=== PATIENT | male | born 1990 | race Caucasian/White ===

== ENCOUNTER 2017-08-02 02:51 | Inpatient (IN) | payer MEDICAID ==
[~2017-08-02] VITALS: Ht 177.8 cm; Wt 77.1 kg
[2017-08-02] MEDS ORDERED: MORPHINE SULFATE 4 MG/ML SYR/VIAL IV ONE ×2 (04:45)
[2017-08-02] MEDS ORDERED: ONDANSETRON HCL 4 MG/2 ML VIAL IV ONE ×2 (04:45)
[2017-08-02 05:16] LABS: Urine WBC None Seen /hpf (0 - 3)
[2017-08-02 05:19] LABS: Basophils # (auto) 0.1 uL; Eosinophils # (auto) 0.1 uL; Eosinophils % (auto) 0.7 % (0.0-7.0); Hematocrit 40.2 % (41.0-53.0); Hemoglobin 14.1 g/dL (13.5-17.5); Lymphocytes # (auto) 2.8 uL; Lymphocytes % (auto) 22.7 % (10.0-50.0); Mean Corpuscular Hemoglobin 32.1 pg (28.0-32.0); Mean Corpuscular Hgb Conc. 35.1 g/dL (32.0-36.0); Mean Corpuscular Volume 91.5 fL (80.0-100.0); Monocytes # (auto) 1.3 uL; Monocytes % (auto) 10.5 % (0.0-12.0); Neutrophils % (auto) 65.1 % (37.0-80.0); Nucleated Red Blood Cells % 0.2 %; Platelet Count (auto) 232 10^3/uL (140-450); Red Blood Cells 4.39 10^6/uL (4.5-5.90); Red Cell Distribution Width 12.8 % (11.8-14.3); White Blood Cell 12.2 10^3/uL (4.4-10.8)
[2017-08-02 05:35] LABS: Urine Amorphous Crystal FEW /hpf (None Seen); Urine Bacteria NONE SEEN /hpf (None Seen); Urine Blood Negative /uL (Negative); Urine Mucus FEW (None Seen); Urine Specific Gravity 1.031 (1.001-1.035)
[2017-08-02 05:39] LABS: Albumin 3.9 g/dL (3.4-5.0); Calcium 9.3 mg/dL (8.5-10.1); Potassium 3.9 mmol/L (3.5-5.1)
[2017-08-02 05:44] LABS: Bilirubin, Total 0.6 mg/dL (0.2-1.0); Total Protein 7.7 g/dL (6.4-8.2)
[2017-08-02] MEDS ORDERED: HYDROcodone-ACET 5/325MG TAB PO PRN (08:30)
[2017-08-02] MEDS ORDERED: ACETAMINOPHEN 500 MG TAB PO PRN (08:30)
[2017-08-02] MEDS ORDERED: ONDANSETRON HCL 4 MG/2 ML VIAL IV PRN (08:30)
[2017-08-02] MEDS: MORPHINE SULFATE 4 MG/ML SYR/VIAL IV PRN ×2 (09:38→13:05)
[2017-08-02 10:54] VITALS: BP 109/59
[2017-08-02 13:00] VITALS: BP 108/63
== END 2017-08-02 14:30 | disposition home or self-care (01) | DRG 813 ==
LOC: ER 02:51 → CENTRAL 02:52
PROVIDERS: ADMIT Nurse Practitioner Family; ATTEND Nurse Practitioner Family
DX: N99.840 Postprocedural hematoma of a genitourinary system organ or structure following a genitourinary system procedure (principal); N50.1 Vascular disorders of male genital organs; Z98.52 Vasectomy status; Z90.49 Acquired absence of other specified parts of digestive tract
CPT/HCPCS: 36415; 76870; 80053; 81001; 85025; 96374; 96375; J2405

== ENCOUNTER 2019-07-13 19:58 | Emergency (ER) | payer MEDICAID ==
[~2019-07-13] VITALS: Ht 177.8 cm; Wt 86.2 kg
[2019-07-13] MEDS ORDERED: TETANUS-DIPTH-ACEL PERTUSSIS 0.5ML SYRG IM ONE (23:15)
[2019-07-14 00:22] VITALS: BP 134/80
== END 2019-07-14 00:50 | disposition home or self-care (01) ==
LOC: ER 19:58
DX: S62.620A Displaced fracture of middle phalanx of right index finger, initial encounter for closed fracture (principal); S60.410A Abrasion of right index finger, initial encounter; W20.8XXA Other cause of strike by thrown, projected or falling object, initial encounter; Y93.89 Activity, other specified; Y92.89 Other specified places as the place of occurrence of the external cause; Y99.8 Other external cause status
CPT/HCPCS: 29130; 73130; 90471; 90715

== ENCOUNTER 2019-07-15 14:32 | Emergency (ER) | payer MEDICAID ==
[~2019-07-15] VITALS: Ht 175.3 cm; Wt 86.2 kg
[2019-07-15 15:35] LABS: Basophils # (auto) 0.1 uL; Basophils % (auto) 0.9 % (0.0-2.0); Eosinophils # (auto) 0 uL; Eosinophils % (auto) 0.4 % (0.0-7.0); Hematocrit 48.1 % (41.0-53.0); Hemoglobin 16.9 g/dL (13.5-17.5); Lymphocytes # (auto) 2.1 uL; Lymphocytes % (auto) 22.3 % (10.0-50.0); Mean Corpuscular Hemoglobin 31.8 pg (28.0-32.0); Mean Corpuscular Volume 90.8 fL (80.0-100.0); Monocytes # (auto) 0.7 uL; Monocytes % (auto) 7.4 % (0.0-12.0); Neutrophils # (auto) 6.5 uL; Nucleated Red Blood Cells % 0.1 %; Platelet Count (auto) 207 10^3/uL (140-450); Red Cell Distribution Width 12.6 % (11.8-14.3); White Blood Cell 9.4 10^3/uL (4.4-10.8)
[2019-07-15 15:50] LABS: Alanine Aminotransferase 45 U/L (16-61); Albumin 4.4 g/dL (3.4-5.0); Anion Gap 5 (5-15); Aspartate Aminotransferase 22 U/L (15-37); BUN/Creatinine Ratio 13.8; Blood Urea Nitrogen 13 mg/dL (7-18); Calcium 9.1 mg/dL (8.5-10.1); Carbon Dioxide 27 mmol/L (21-32); Chloride 105 mmol/L (98-107); GFR African American 121 mL/min; GFR Non-African American 100 mL/min; Glucose 91 mg/dL (74-106); Potassium 3.8 mmol/L (3.5-5.1); Sodium 137 mmol/L (136-145)
[2019-07-15 15:54] LABS: Alkaline Phosphatase 101 U/L (45-117); Bilirubin, Total 1.2 mg/dL (0.2-1.0); Total Protein 8.2 g/dL (6.4-8.2)
[2019-07-15 19:25] VITALS: BP 120/82
== END 2019-07-15 19:30 | disposition home or self-care (01) ==
LOC: ER 14:37
DX: J20.9 Acute bronchitis, unspecified (principal); F41.9 Anxiety disorder, unspecified; Z90.49 Acquired absence of other specified parts of digestive tract
CPT/HCPCS: 36415; 71046; 80053; 84484; 85025; 93005

== ENCOUNTER 2024-04-23 23:41 | Inpatient (IN) | payer MEDICAID ==
[~2024-04-23] VITALS: Ht 175.3 cm; Wt 78.6 kg
[2024-04-24] MEDS: SODIUM CHLORIDE 0.9% 1,000 ML IV ONE (00:06)
[2024-04-24] MEDS: ONDANSETRON HCL 4 MG/2 ML VIAL IV ONE (00:06)
[2024-04-24] MEDS: PANTOPRAZOLE 40 MG/10 ML VIAL INJ IV ONE ×2 (00:06→03:00)
[2024-04-24] MEDS: LORazepam 2MG/ML-1ML VIAL IV ONE ×2 (00:06→00:40)
[2024-04-24 00:26] LABS: Basophils # (auto) 0.1 10 ^3/uL (0-0.2); Basophils % (auto) 0.9 % (0.0-2.0); Eosinophils # (auto) 0.1 10 ^3/uL (0-0.8); Eosinophils % (auto) 0.6 % (0.0-7.0); Hematocrit 47.6 % (41.0-53.0); Lymphocytes % (auto) 41.8 % (10.0-50.0); Mean Corpuscular Hemoglobin 33.4 pg (28.0-32.0); Mean Corpuscular Hgb Conc. 35.7 g/dL (32.0-36.0); Mean Corpuscular Volume 93.6 fL (80.0-100.0); Monocytes # (auto) 0.5 10 ^3/uL (0-1.3); Monocytes % (auto) 4.8 % (0.0-12.0); Neutrophils % (auto) 51.9 % (37.0-80.0); Nucleated Red Blood Cells % 0.1 %; Platelet Count (auto) 322 10^3/uL (140-450); Red Blood Cells 5.09 10^6/uL (4.5-5.90); Red Cell Distribution Width 12.9 % (11.8-14.3); White Blood Cell 9.6 10^3/uL (4.4-10.8)
--- NOTE | 2024-04-24 00:27 | ED.PDOC ---
History of Present Illness HPI Comments 33-year-old male who came to ER for alcohol intoxication/withdrawals. Patient has been binge drinking alcohol/vodka for over a week. Last drank alcohol at 6:00 p.m. last night. As he went to bed, he started having generalized tremors, shaking, nausea, and blurring of vision. Has been having visual hallucinations as well. Upon arrival blood pressure of 221/178 mm Hg. Chief Complaint: Withdrawal Time Seen by MD: 00:27 Primary Care Provider: KIMBERLY Allergies: Coded Allergies: NO KNOWN ALLERGIES (Unverified , 08/02/17) Home Meds No Active Prescriptions or Reported Meds Information Source: Patient Mode of Arrival: Ambulatory Severity: Moderate Timing: Hours Duration: Since onset Prehospital treatment: None Medication Refill: For: Other Past Medical History PAST MEDICAL HISTORY: Anxiety, Denies Surgical History: Appendectomy Family History Family History: Reviewed,noncontributory to illness Social History Smoker: Non-Smoker, Other Alcohol: Heavy Drugs: Marijuana Lives In: Home Constitutional: denies: chills, diaphoresis, fatigue, fever, malaise, sweats, weakness, others EENTM: reports: blurred vision, voice changes; denies: double vision, ear bleeding, ear discharge, ear drainage, ear pain, ear ringing, eye pain, eye redness, hearing loss, mouth pain, mouth swelling, nasal discharge, nose bleeding, nose congestion, nose pain, photophobia, tearing, throat pain, throat swelling, others Respiratory: denies: cough, hemoptysis, orthopnea, SOB at rest, shortness of breath, SOB with excertion, stridor, wheezing, others Cardiovascular: denies: chest pain, dizzy spells, diaphoresis, Dyspnea on exertion, edema, irregular heart beat, left arm pain, lightheadedness, palpitations, PND, syncope, others Gastrointestinal: denies: abdomen distended, abdominal pain, blood streaked bowels, constipated, diarrhea, dysphagia, difficulty swallowing, hematemesis, melena, nausea, poor appetite, poor fluid intake, rectal bleeding, rectal pain, vomiting, others Genitourinary: denies: burning, dysuria, flank pain, frequency, hematuria, incontinence, penile discharge, penile sore, pain, testicle pain, testicle swelling, urgency, others Neurological: reports: tremors; denies: dizziness, fainting, headache, left sided numbness, left sided weakness, numbness, paresthesia, pre-existing deficit, right sided numbness, right sided weakness, seizure, speech problems, tingling, weakness, others Musculoskeletal: denies: back pain, gout, joint pain, joint swelling, muscle pain, muscle stiffness, neck pain, others Integumetry: denies: bruises, change in color, change in hair/nails, dryness, laceration, lesions, lumps, rash, wounds, others Allergic/Immunocompromised: denies: Difficulty Healing, Frequent Infections, Hives, Itching, others Hematologic/Lymphatic: denies: anemia, blood clots, easy bleeding, easy bruising, swollen glands, others Endocrine: denies: excessive hunger, excessive sweating, excessive thirst, excessive urination, flushing, intolerance to cold, intolerance to heat, unexplained weight gain, unexplained weight loss, others Psychiatric: denies: anxiety, bipolar disorder, depression, hopeless, panic disorder, schizophrenia, sleepless, suicidal, others Physical Exam General Appearance: No Apparent Distress, Normal HEENT: Normal ENT Inspection, Pharynx Normal, TMs Normal Neck: Full Range of Motion, Non-Tender, Normal, Normal Inspection Respiratory: Chest Non-Tender, Lungs Clear, No Accessory Muscle Use, No Respiratory Distress, Normal Breath Sounds Cardiovascular: No Edema, No JVD, No Murmur, No Gallop, Normal Peripheral Pulses, Regular Rate/Rhythm Breast Exam: Deferred Gastrointestinal: No Organomegaly, Non Tender, No Pulsatile Mass, Normal Bowel Sounds, Soft Genitalia: Deferred Pelvic: Deferred Rectal: Deferred Extremities: No calf tenderness, Normal capillary refill, Normal inspection, Normal range of motion, Non-tender, No pedal edema Musculoskeletal : Apperance: Normal Neurologic: Alert, paper supervisor II-XII nml as Tested, No Motor Deficits, Normal Affect, Normal Mood, No Sensory Deficits Cerebellar Function: Normal Reflexes: Normal Skin: Dry, Normal Color, Warm Lymphatic: No Adenopathy Was a procedure done? Was a procedure done?: No Differential Dx Considerations may include: Anemia, electrolyte imbalance, alcohol intoxication, alcohol withdrawal, hypertensive urgency X-Ray, Labs, Meds, VS Vital Signs Date Time Temp Pulse Resp B/P (MAP) Pulse Ox O2 Delivery O2 Flow Rate FiO2 04/24/24 01:30 95 18 114/73 (87) 99 04/24/24 00:47 105 18 127/75 (92) 96 04/23/24 23:46 97.8 113 22 221/178 (192) 99 Lab Test 04/24/24 01:56 04/23/24 23:57 04/23/24 23:54 04/23/24 00:55 Range/Units Lactic Acid Level Pending 2.4 *H 0.4-2.0 mmol/L White Blood Count 9.6 4.4-10.8 10^3/uL Red Blood Count 5.09 4.5-5.90 10^6/uL Hemoglobin 17.0 13.5-17.5 g/dL Hematocrit 47.6 41.0-53.0 % Mean Corpuscular Volume 93.6 80.0-100.0 fL Mean Corpuscular Hemoglobin 33.4 H 28.0-32.0 pg Mean Corpuscular Hemoglobin Concent 35.7 32.0-36.0 g/dL Red Cell Distribution Width 12.9 11.8-14.3 % Platelet Count 322 140-450 10^3/uL Mean Platelet Volume 7.9 6.9-10.8 fL Neutrophils (%) (Auto) 51.9 37.0-80.0 % Lymphocytes (%) (Auto) 41.8 10.0-50.0 % Monocytes (%) (Auto) 4.8 0.0-12.0 % Eosinophils (%) (Auto) 0.6 0.0-7.0 % Basophils (%) (Auto) 0.9 0.0-2.0 % Neutrophils # (Auto) 5.0 1.6-8.6 10 ^3/uL Lymphocytes # (Auto) 4.0 0.4-5.4 10 ^3/uL Monocytes # (Auto) 0.5 0-1.3 10 ^3/uL Eosinophils # (Auto) 0.1 0-0.8 10 ^3/uL Basophils # (Auto) 0.1 0-0.2 10 ^3/uL Nucleated Red Blood Cells 0.1 % Sodium Level 137 136-145 mmol/L Potassium Level 3.6 3.5-5.1 mmol/L Chloride Level 104 98-107 mmol/L Carbon Dioxide Level 21 20-31 mmol/L Anion Gap 12 5-15 Blood Urea Nitrogen 11 9-23 mg/dL Creatinine 1.09 0.700-1.30 mg/dL Glomerular Filtration Rate Calc 91 >90 mL/min BUN/Creatinine Ratio 10.1 10.0-20.0 Serum Glucose 116 H 74-106 mg/dL Calcium Level 10.4 8.7-10.4 mg/dL Total Bilirubin 0.6 0.2-1.0 mg/dL Aspartate Amino Transferase (AST) 30 13-40 U/L Alanine Aminotransferase (ALT) 33 7-40 U/L Alkaline Phosphatase 119 H 46-116 U/L B-Type Natriuretic Peptide < 0 0-100 pg/mL Total Protein 7.9 5.7-8.2 g/dL Albumin 5.1 H 3.2-4.8 g/dL Plasma/Serum Blood Alcohol 4.4 <10 mg/dL POC Glucose 111 H 70-106 mg/dl Urine Color Light-yellow Yellow Urine Clarity Clear Clear Urine pH 6.5 5.0-9.0 Urine Specific [place] 1.010 1.001-1.035 Urine Protein Negative Negative Urine Ketones Negative Negative Urine Blood Negative Negative /uL Urine Nitrite Negative Negative Urine Bilirubin Negative Negative Urine Urobilinogen Normal Negative mg/dL Urine Leukocyte Esterase Negative Negative /uL Urine RBC None seen 0 - 3 /hpf Urine WBC 1 0 - 3 /hpf Urine Squamous Epithelial Cells None seen <5 /hpf Urine Bacteria None seen None Seen /hpf Urine Glucose Normal Normal mg/dL Urine Opiates Screen Neg NEGATIVE Urine Fentanyl Screen Neg NEGATIVE Urine Barbiturates Screen Neg NEGATIVE Urine Phencyclidine Screen Neg NEGATIVE Urine Amphetamines Screen Neg NEGATIVE Urine Benzodiazepines Screen Neg NEGATIVE Urine Cocaine Screen Neg NEGATIVE Urine Cannabinoids Screen Neg NEGATIVE Current Medications Medications (Trade) Dose Ordered Sig/Manuel Route Start Time Stop Time Status Last Admin Sodium Chloride 1,000 ml @ 1,000 mls/hr Q1H ONCE IV 04/24/24 00:00 04/24/24 00:59 DC 04/24/24 00:06 Ondansetron HCl (Zofran) 4 mg ONCE ONCE IV 04/24/24 00:00 04/24/24 00:01 DC 04/24/24 00:06 Pantoprazole Sodium (Protonix) 40 mg ONCE ONCE IV 04/24/24 00:00 04/24/24 00:01 DC 04/24/24 00:06 Lorazepam (Ativan Inj) 1 mg ONCE ONCE IV 04/24/24 00:00 04/24/24 00:01 DC 04/24/24 00:06 Lorazepam (Ativan Inj) 1 mg ONCE ONCE IV 04/24/24 00:45 04/24/24 00:46 DC 04/24/24 00:40 Time of 1ST Reevaluation: 00:23 Reevaluation 1ST: Unchanged Patient Education/Counseling: Diagnosis, Treatment Family Education/Counseling: Diagnosis, Treatment Departure 1 Departure Time of Disposition: 02:13 (Patient with a acute alcohol withdrawal. Treat with benzos we will admit patient for further workup) Impression: Primary Impression: Acute hyperactive alcohol withdrawal delirium Disposition: 09 ADMITTED INPATIENT Admit to: Med Surg Condition: Serious e-Prescriptions No Active Prescriptions or Reported Meds Critical Care Note Critical Care Time?: Yes (35 min-critical care time only) Critical care comment: Acute alcohol withdrawal Authorized and Performed by: Ronaldo Shepherd MD Total critical care time: Approximately 39 minutes Due to a high probability of clinically significant, life threatening deterioration, the patient required my highest level of preparedness to int ervene emergently and I personally spent this critical care time directly and personally managing the patient. This critical care time included obtaining a history; examining the patient; pulse oximetry; ordering and review of studies; arranging urgent treatment with development of a management plan; evaluation of patient's response to treatment; frequent reassessment; and, discussions with other providers. This critical care time was performed to assess and manage the high probability of imminent, life-threatening deterioration that could result in multi-organ failure. It was exclusive of separately billable procedures and treating other patients and teaching time. Please see my other sections and the rest of the note for further information on patient assessment and treatment. Stability Stability form required: No Heart Score Heart Score: Heart Score Response (Comments) Value History N/A 0 EKG N/A 0 Age N/A 0 Risk Factors N/A 0 Troponin N/A 0 Total 0 I personally scribed for RONALDO SHEPHERD MD ([email or web address]) on 04/24/24 at 00:27. E lectronically submitted by Maninder Chun ([facility] RONALDO SHEPHERD MD Apr 24, 2024 00:27
[2024-04-24 01:12] LABS: Urine Bacteria None Seen /hpf (None Seen)
[2024-04-24 01:22] LABS: Chloride 104 mmol/L (98-107); Potassium 3.6 mmol/L (3.5-5.1); Sodium 137 mmol/L (136-145)
[2024-04-24 01:24] LABS: Anion Gap 12 (5-15); Calcium 10.4 mg/dL (8.7-10.4); Carbon Dioxide 21 mmol/L (20-31)
[2024-04-24 01:28] LABS: Urine Blood Negative /uL (Negative); Urine Clarity Clear (Clear); Urine Color Light-Yellow (Yellow); Urine Protein, UAD Negative (Negative); Urine Urobilinogen Normal (Negative); Urine WBC 1 /hpf (0 - 3); Urine pH 6.5 (5.0-9.0)
[2024-04-24 01:29] LABS: Amphetamine Screen, Urine Neg (NEGATIVE)
[2024-04-24 01:29] LABS: BUN/Creatinine Ratio 10.1 (10.0-20.0); Blood Urea Nitrogen 11 mg/dL (9-23)
[2024-04-24 01:30] LABS: Blood Alcohol 4.4 mg/dL (<10)
[2024-04-24 01:30] LABS: Barbiturate Scree,Urine Neg (NEGATIVE); Benzodiazephine Screen, Urine Neg (NEGATIVE); Cannabinoid Screen, Urine Neg (NEGATIVE); Cocaine Screen, Urine Neg (NEGATIVE); Opiate Scree,Urine Neg (NEGATIVE); Phencyclidine Screen, Urine Neg (NEGATIVE)
[2024-04-24 01:31] LABS: Alkaline Phosphatase 119 U/L (46-116); Glucose 116 mg/dL (74-106)
[2024-04-24 01:32] LABS: Alanine Aminotransferase 33 U/L (7-40); Albumin 5.1 g/dL (3.2-4.8); Aspartate Aminotransferase 30 U/L (13-40); Bilirubin, Total 0.6 mg/dL (0.2-1.0); Total Protein 7.9 g/dL (5.7-8.2)
[2024-04-24 01:37] LABS: Lactic Acid w/Reflex 2.4 mmol/L (0.4-2.0)
[2024-04-24] MEDS ORDERED: MORPHINE SULFATE INJ 2 MG/ml SYRG IV PRN (02:30)
[2024-04-24] MEDS ORDERED: chlordiazePOXIDE HCL 5 MG CAP PO PRN (02:30)
[2024-04-24] MEDS ORDERED: DOCUSATE SOD 100 MG CAP PO PRN (02:30)
[2024-04-24] MEDS ORDERED: NITROGLYCERIN 0.4 MG SL TAB SL PRN (02:30)
[2024-04-24] MEDS ORDERED: ONDANSETRON HCL 4 MG/2 ML VIAL IV PRN (02:30)
[2024-04-24 02:41] VITALS: PULSE 87; RESP 14; O2SAT 96
[2024-04-24] MEDS: chlordiazePOXIDE HCL 25 MG CAP PO ONE (03:00)
[2024-04-24] MEDS: FOLIC ACID 1 MG TAB PO ONE (03:00)
[2024-04-24] MEDS: CYANOCOBALAMIN (B-12) 1000 MCG/1 ML VIAL IM ONE (03:00)
--- NOTE | 2024-04-24 03:10 | DVHHPRES ---
History of Present Illness Resident Creating Document: RODNEY FAGAN RESIDENT History of Present Illness Patient is 33 years old male with a history of anxiety came with a complaint of symptoms of alcohol withdrawal. As per patient he had alcohol 6:00 p.m. on 02/21/2024, following that he also had vodka yesterday. He went to sleep and wake up early and felt different. As per patient he felt like the floor of the room is wavy, reported vertigo, blurry vision, shaky, sweaty. As per patient he could barely walk, he was feeling wobbly. Patient felt like his head was exploding with associated vertigo and nauseous but no vomiting. Patient reported that he has been having binge drinking for last 1 week. Patient denied any chest pain, shortness of breath, fever, dysuria, diarrhea, acute joint pain or swelling. Initial lab workup revealed lactic acidosis 2.4, elevated alkaline phosphatase 119, blood sugar 116. Other initial lab workup was within normal limit. UDS was negative and serum alcohol 4.4. Initial vitals revealed BP 221/178 pulse 113, respiration 22. Patient had Ativan 1 mg stat and following that his blood pressure came down to 127/75, respiration 18, pulse 95. Urinalysis negative for UTI. Past Medical History Anxiety Past Surgical History Appendectomy, gallbladder surgery Family History Nonsignificant Past Social History Patient's lives at home with girlfriend, heavy alcoholic, smokes, denies using drugs Review of Systems Review of Systems Allergy- NKDA Patient was seen today at the bedside. Patient Cardiovascular- deny acute chest pain or shortness of breath or cough or palpitation Respiratory- denies cough or short of breath or wheezing Gastrointestinal- denies any rectal bleeding, nausea or vomiting Musculoskeletal-denies acute joint swelling or tenderness or redness Neurological- denies acute dysarthria, dysphagia, change in vision Psychiatry- denies depression or SI or HI Skin- denies acute rash or purpura Allergies: Coded Allergies: NO KNOWN ALLERGIES (Unverified , 08/02/17) Medications Current Medications Medications Dose Ordered Sig/Manuel Route Start Time Stop Time Status Last Admin Dose Admin Sodium Chloride 10 ml Q8HR IV 04/24/24 06:00 Ondansetron HCl 4 mg Q4HP PRN IV 04/24/24 02:30 Docusate Sodium 100 mg BIDPRN PRN PO 04/24/24 02:30 Nitroglycerin 0.4 mg Q5MINP PRN SL 04/24/24 02:30 Morphine Sulfate 2 mg Q30M PRN IV 04/24/24 02:30 Folic Acid 1 mg/ Multivitamins 10 ml/Magnesium Sulfate 8 meq/ Thiamine HCl 100 mg/Dextrose 1,013.2 ml @ 125.001 mls/hr DAILY@1800 INJ 04/24/24 18:00 Chlordiazepoxide HCl 5 mg Q4HPRN PRN PO 04/24/24 02:30 Pantoprazole Sodium 40 mg DAILY IV 04/24/24 10:00 Lorazepam 1 mg Q2HPRN PRN IV 04/24/24 02:45 Exam Vital Signs Vital Signs Date Time Temp Pulse Resp B/P (MAP) Pulse Ox O2 Delivery O2 Flow Rate FiO2 04/24/24 01:30 95 18 114/73 (87) 99 04/23/24 23:46 97.8 Exam General examination- awake, alert, oriented, conversant HEENT- PEERLA, no acute nasal discharge Cardiovascular- S1-S2 audible, rate and rhythm regular, no murmur Respiratory- CTAB, no wheeze or rhonchi Gastrointestinal-nontender, bowel sound+. Nondistended Musculoskeletal-no acute joint swelling or tenderness or redness# Lower extremity- no leg edema Neurological- cranial nerves intact, no acute dysarthria or dysphagia Psychiatry- denies depression or SI or HI Skin- no acute rash or purpura Labs/Xrays Labs Test 04/24/24 01:56 04/23/24 23:57 04/23/24 23:54 04/23/24 00:55 Range/Units White Blood Count 9.6 4.4-10.8 10^3/uL Red Blood Count 5.09 4.5-5.90 10^6/uL Hemoglobin 17.0 13.5-17.5 g/dL Hematocrit 47.6 41.0-53.0 % Mean Corpuscular Volume 93.6 80.0-100.0 fL Mean Corpuscular Hemoglobin 33.4 H 28.0-32.0 pg Mean Corpuscular Hemoglobin Concent 35.7 32.0-36.0 g/dL Red Cell Distribution Width 12.9 11.8-14.3 % Platelet Count 322 140-450 10^3/uL Mean Platelet Volume 7.9 6.9-10.8 fL Neutrophils (%) (Auto) 51.9 37.0-80.0 % Lymphocytes (%) (Auto) 41.8 10.0-50.0 % Monocytes (%) (Auto) 4.8 0.0-12.0 % Eosinophils (%) (Auto) 0.6 0.0-7.0 % Basophils (%) (Auto) 0.9 0.0-2.0 % Neutrophils # (Auto) 5.0 1.6-8.6 10 ^3/uL Lymphocytes # (Auto) 4.0 0.4-5.4 10 ^3/uL Monocytes # (Auto) 0.5 0-1.3 10 ^3/uL Eosinophils # (Auto) 0.1 0-0.8 10 ^3/uL Basophils # (Auto) 0.1 0-0.2 10 ^3/uL Nucleated Red Blood Cells 0.1 % Sodium Level 137 136-145 mmol/L Potassium Level 3.6 3.5-5.1 mmol/L Chloride Level 104 98-107 mmol/L Carbon Dioxide Level 21 20-31 mmol/L Anion Gap 12 5-15 Blood Urea Nitrogen 11 9-23 mg/dL Creatinine 1.09 0.700-1.30 mg/dL Glomerular Filtration Rate Calc 91 >90 mL/min BUN/Creatinine Ratio 10.1 10.0-20.0 Serum Glucose 116 H 74-106 mg/dL Calcium Level 10.4 8.7-10.4 mg/dL Total Bilirubin 0.6 0.2-1.0 mg/dL Aspartate Amino Transferase (AST) 30 13-40 U/L Alanine Aminotransferase (ALT) 33 7-40 U/L Alkaline Phosphatase 119 H 46-116 U/L B-Type Natriuretic Peptide < 0 0-100 pg/mL Total Protein 7.9 5.7-8.2 g/dL Albumin 5.1 H 3.2-4.8 g/dL Plasma/Serum Blood Alcohol 4.4 <10 mg/dL POC Glucose 111 H 70-106 mg/dl Urine Color Light-yellow Yellow Urine Clarity Clear Clear Urine pH 6.5 5.0-9.0 Urine Specific [place] 1.010 1.001-1.035 Urine Protein Negative Negative Urine Ketones Negative Negative Urine Blood Negative Negative /uL Urine Nitrite Negative Negative Urine Bilirubin Negative Negative Urine Urobilinogen Normal Negative mg/dL Urine Leukocyte Esterase Negative Negative /uL Urine RBC None seen 0 - 3 /hpf Urine WBC 1 0 - 3 /hpf Urine Squamous Epithelial Cells None seen <5 /hpf Urine Bacteria None seen None Seen /hpf Urine Glucose Normal Normal mg/dL Urine Opiates Screen Neg NEGATIVE Urine Fentanyl Screen Neg NEGATIVE Urine Barbiturates Screen Neg NEGATIVE Urine Phencyclidine Screen Neg NEGATIVE Urine Amphetamines Screen Neg NEGATIVE Urine Benzodiazepines Screen Neg NEGATIVE Urine Cocaine Screen Neg NEGATIVE Urine Cannabinoids Screen Neg NEGATIVE Assessment/Plan Assessment/Plan #Toxic encephalopathy likely due to alcoholism -patient is heavy alcoholic -address symptom of shaking, sweating, confusion, blurry vision, wobbly gait -continue banana bag 125 mL/hour -continue cyanocobalamin as prescribed -continue folic acid as prescribed -continue Ativan as per protocol #Suspected Alcohol withdrawal -patient binge drinker, had alcohol and vodka lately -serum alcohol 4.4 --continue banana bag 125 mL/hour -continue cyanocobalamin as prescribed -continue folic acid as prescribed -continue Ativan as per protocol #Lactic acidosis -lactic acid 2.4 -continue as prescribed #Anxiety -continue Ativan p.r.n. #Alcoholism -patient was counseled about the effect of alcoholism on health #Smoker -patient was counseled about the effect of smoking on health Goals of care/advance care planning; FULL CODE; discussed with the patient >15 minutes PUD prophylaxis: Pantoprazole DVT prophylaxis: Plan discussed with Dr. Bowling, nursing staff, patient Total time spent on patient evaluation, chart review, assessment and plan, discussion discussion >30 minutes Plan discussed with: Patient Plan discussed with: Patient, Other (RN) My Orders Orders - RODNEY FAGAN RESIDENT Procedure Category Date Status Time Code Status CODE 04/24/24 Transmitted 02:20 Sodium Chloride Lock PHA 04/24/24 In Process (Saline Lock Ns) 06:00 Ondansetron Hcl PHA 04/24/24 In Process (Zofran) 02:30 Docusate Sodium PHA 04/24/24 In Process Capsule (Colace 02:30 Complete Blood Count LAB 04/25/24 Verified 04:00 Comprehensive LAB 04/25/24 Verified Metabolic Panel 04:00 Npo (Nothing By DIET 04/24/24 Transmitted Mouth) Diet Breakfast Nitroglycerin PHA 04/24/24 In Process Sublingual (Ntrostat 02:30 Morphine Sulfate PHA 04/24/24 In Process Injection 02:30 Oxygen By Nasal RT 04/24/24 Transmitted Cannula 02:20 Stat Ekg For Chest EREN 04/24/24 In Process Pain 02:20 Notify Of Changes EREN 04/24/24 In Process From Base 02:20 Helicopter Repairer For EREN 04/24/24 In Process 24 Hours 02:20 Emergency Dysrhythmia EREN 04/24/24 In Process Protocol 02:20 Rhythm Strips Once EREN 04/24/24 In Process Every Shift 02:20 Lipase LAB 04/24/24 In Process 02:22 Thyroid Stimulating LAB 04/24/24 In Process Hormone 02:22 Magnesium LAB 04/24/24 In Process 02:22 Folic Acid... PHA 04/24/24 In Process 18:00 Chlordiazepoxide Hcl PHA 04/24/24 In Process Capsule (Librium Ca 02:30 Pantoprazole PHA 04/24/24 In Process (Protonix) 10:00 Chest Xray 1 View XY 04/24/24 Logged 02:29 Lorazepam 2mg/Ml Inj PHA 04/24/24 In Process (Ativan Inj) 02:45 Etoh Withdrawal EREN 04/24/24 In Process Assessment 02:31 Etoh Withdrawal EREN 04/24/24 In Process Assessment 02:31 Abdomen Limited US 04/24/24 Logged 02:32 Admit ADMIT 04/24/24 Transmitted 02:35 Date of Service: Apr 24, 2024 Billing Provider: SHERIE BOWLING MD Common Visit Codes: [id number] INP/OBS CARE (HIGH) RODNEY FAGAN RESIDENT Apr 24, 2024 03:10 SHERIE BOWLING MD Apr 26, 2024 12:06
[2024-04-24] MEDS: LORazepam 2MG/ML-1ML VIAL IV PRN (03:21)
[2024-04-24 03:26] LABS: Magnesium 1.9 mg/dL (1.6-2.6)
[2024-04-24 03:35] VITALS: TEMP 98.2
[2024-04-24 04:00] VITALS: BP 119/66; PULSE 82; RESP 18; O2SAT 97
--- NOTE | 2024-04-24 04:39 | DVH ---
CHEST RADIOGRAPH Indication: Rule out pneumonia Technique: Single frontal view of the chest was obtained Comparison: None IMPRESSION: The heart appears normal in size. The lungs appear clear without focal airspace opacity, effusion, p neumothorax.
[2024-04-24] MEDS ORDERED: SODIUM CHLOR 0.9% PF (SALINE LOCK) 10ML VIAL/SYR IV SCH (06:00)
--- NOTE | 2024-04-24 06:16 | DVHDSRES ---
Discharge Summary Date of Admission Resident Creating Document: RODNEY FAGAN RESIDENT Apr 24, 2024 at 02:35 Date of Discharge: Apr 24, 2024 Admitting Diagnosis Alcohol withdrawal Labs/Diagnostic Data: Laboratory Results Test 04/24/24 01:56 04/23/24 23:57 04/23/24 23:54 04/23/24 00:55 Lactic Acid Level 0.9 mmol/L (0.4-2.0) White Blood Count 9.6 10^3/uL (4.4-10.8) Red Blood Count 5.09 10^6/uL (4.5-5.90) Hemoglobin 17.0 g/dL (13.5-17.5) Hematocrit 47.6 % (41.0-53.0) Mean Corpuscular Volume 93.6 fL (80.0-100.0) Mean Corpuscular Hemoglobin 33.4 pg (28.0-32.0) Mean Corpuscular Hemoglobin Concent 35.7 g/dL (32.0-36.0) Red Cell Distribution Width 12.9 % (11.8-14.3) Platelet Count 322 10^3/uL (140-450) Mean Platelet Volume 7.9 fL (6.9-10.8) Neutrophils (%) (Auto) 51.9 % (37.0-80.0) Lymphocytes (%) (Auto) 41.8 % (10.0-50.0) Monocytes (%) (Auto) 4.8 % (0.0-12.0) Eosinophils (%) (Auto) 0.6 % (0.0-7.0) Basophils (%) (Auto) 0.9 % (0.0-2.0) Neutrophils # (Auto) 5.0 10 ^3/uL (1.6-8.6) Lymphocytes # (Auto) 4.0 10 ^3/uL (0.4-5.4) Monocytes # (Auto) 0.5 10 ^3/uL (0-1.3) Eosinophils # (Auto) 0.1 10 ^3/uL (0-0.8) Basophils # (Auto) 0.1 10 ^3/uL (0-0.2) Nucleated Red Blood Cells 0.1 % Sodium Level 137 mmol/L (136-145) Potassium Level 3.6 mmol/L (3.5-5.1) Chloride Level 104 mmol/L (98-107) Carbon Dioxide Level 21 mmol/L (20-31) Anion Gap 12 (5-15) Blood Urea Nitrogen 11 mg/dL (9-23) Creatinine 1.09 mg/dL (0.700-1.30) Glomerular Filtration Rate Calc 91 mL/min (>90) BUN/Creatinine Ratio 10.1 (10.0-20.0) Serum Glucose 116 mg/dL (74-106) Calcium Level 10.4 mg/dL (8.7-10.4) Magnesium Level 1.9 mg/dL (1.6-2.6) Total Bilirubin 0.6 mg/dL (0.2-1.0) Aspartate Amino Transferase (AST) 30 U/L (13-40) Alanine Aminotransferase (ALT) 33 U/L (7-40) Alkaline Phosphatase 119 U/L (46-116) B-Type Natriuretic Peptide < 0 pg/mL (0-100) Total Protein 7.9 g/dL (5.7-8.2) Albumin 5.1 g/dL (3.2-4.8) Lipase 41 U/L (12-53) Thyroid Stimulating Hormone (TSH) 1.98 uIU/mL (0.55-4.78) Plasma/Serum Blood Alcohol 4.4 mg/dL (<10) POC Glucose 111 mg/dl (70-106) Urine Color Light-yellow (Yellow) Urine Clarity Clear (Clear) Urine pH 6.5 (5.0-9.0) Urine Specific [place] 1.010 (1.001-1.035) Urine Protein Negative (Negative) Urine Ketones Negative (Negative) Urine Blood Negative /uL (Negative) Urine Nitrite Negative (Negative) Urine Bilirubin Negative (Negative) Urine Urobilinogen Normal mg/dL (Negative) Urine Leukocyte Esterase Negative /uL (Negative) Urine RBC None seen /hpf (0 - 3) Urine WBC 1 /hpf (0 - 3) Urine Squamous Epithelial Cells None seen /hpf (<5) Urine Bacteria None seen /hpf (None Seen) Urine Glucose Normal mg/dL (Normal) Urine Opiates Screen Neg (NEGATIVE) Urine Fentanyl Screen Neg (NEGATIVE) Urine Barbiturates Screen Neg (NEGATIVE) Urine Phencyclidine Screen Neg (NEGATIVE) Urine Amphetamines Screen Neg (NEGATIVE) Urine Benzodiazepines Screen Neg (NEGATIVE) Urine Cocaine Screen Neg (NEGATIVE) Urine Cannabinoids Screen Neg (NEGATIVE) Other Laboratory Tests 04/23/24 23:57 Brief Hx & Hospital Course: Patient is 33 years old male with a history of anxiety came with a complaint of symptoms of alcohol withdrawal. As per patient he had alcohol 6:00 p.m. on 02/21/2024, following that he also had vodka yesterday. He went to sleep and wake up early and felt different. As per patient he felt like the floor of the room is wavy, reported vertigo, blurry vision, shaky, sweaty. As per patient he could barely walk, he was feeling wobbly. Patient felt like his head was exploding with associated vertigo and nauseous but no vomiting. Patient reported that he has been having binge drinking for last 1 week. Patient denied any chest pain, shortness of breath, fever, dysuria, diarrhea, acute joint pain or swelling. Initial lab workup revealed lactic acidosis 2.4, elevated alkaline phosphatase 119, blood sugar 116. Other initial lab workup was within normal limit. UDS was negative and serum alcohol 4.4. Initial vitals revealed BP 221/178 pulse 113, respiration 22. Patient had Ativan 1 mg stat and following that his blood pressure came down to 127/75, respiration 18, pulse 95. Urinalysis negative for UTI. Patient was treated conservatively with IV fluid banana bag, Ativan p.r.n.. Patient remained unstable during hospitalization. Patient left AMA. Condition on discharge undetermined. Past Medical History Anxiety Past Surgical History Appendectomy, gallbladder surgery Family History Nonsignificant Past Social History Patient's lives with home with girlfriend, heavy alcoholic, smokes, denies using drugs Allergy- NKDA Physical exam could not be done as patient left AMA. Condition at Discharge: Undetermined Final Diagnosis/Problems List Toxic encephalopathy due to alcoholism Alcohol withdrawal Lactic acidosis Anxiety Alcoholism Smoker Discharge Disposition: AMA Discharge Statement: "Patient was advised to return to the ER or call 911 if any headaches, dizziness, shortness of breath, chest pain, abdominal pain, bleeding, fevers, or worsening of medical condition. Patient was counseled about treatment plan, medications, possible side effects, patientverbalized understanding. All questions were answered to the best of my ability. This discharge took greater then 30 minutes in planning, reviewing documentation, counseling the patient, and discussing with other team members." ASSESSMENT ASSESSMENT Assessment Date of Service: Apr 24, 2024 Billing Provider: SHERIE BOWLING MD Common Visit Codes: NOT BILLABLE RODNEY FAGAN RESIDENT Apr 24, 2024 06:16 SHERIE BOWLING MD Apr 26, 2024 12:07
[2024-04-24] MEDS ORDERED: PANTOPRAZOLE 40 MG/10 ML VIAL INJ IV SCH (10:00)
[2024-04-24] MEDS ORDERED: FOLIC ACID 1 MG, MULTIPLE VITAMIN 10 ML, MAGNESIUM SULF SDV 50% 8 MEQ, THIAMINE INJ 100... INJ SCH (18:00)
== END 2024-04-24 05:41 | disposition left against medical advice (07) | DRG 52 ==
LOC: ER 23:41 → TELE 04-24 02:35
PROVIDERS: ADMIT Internal Medicine; ATTEND Emergency Medicine
DX: G92.9 Unspecified toxic encephalopathy (principal); F10.231 Alcohol dependence with withdrawal delirium; E87.20 Acidosis, unspecified; F41.9 Anxiety disorder, unspecified; Y90.9 Presence of alcohol in blood, level not specified; Z53.29 Procedure and treatment not carried out because of patient's decision for other reasons; Z90.49 Acquired absence of other specified parts of digestive tract
CPT/HCPCS: 36415; 71045; 80053; 80307; 80320; 81001; 82962; 83605; 83690; 83735; 83880; 84443; 85025; 99291; G0378; J2405; J2470

== ENCOUNTER 2024-10-13 08:45 | Emergency (ER) | payer MEDICAID ==
[~2024-10-13] VITALS: Ht 177.8 cm; Wt 85.0 kg
[~2024-10-13 08:45] MED LIST: CHL25C GT; GABA300T4 PO
[2024-10-13] MEDS: HYDROcodone-ACET 7.5/325MG TAB PO ONE (12:05)
--- NOTE | 2024-10-13 12:26 | ED.PDOC ---
Musculoskeletal HPI Comments A 34 year male presents to the ED with a chief complaint of possible fracture of LT foot s/p fall onset yesterday (10/12/24). Patient states he was stepping off his tractor when he slipped, tried catching his fall, twisted RT ankle. He woke up this morning experiencing RT ankle swelling, pain. He is not able to walk or apply pressure on RT foot due to pain, rates pain 10/10, has not taken pain medication, has a numbness sensation to RT toes. Patient has sprained RT ankle previously, believed it was a sprain, pain worsen today, came to ED. No other symptoms or modifying factors present at this time. Not able to bear weight Denies previous surgeries to the ankle Denies fever chills night sweats nausea vomiting Denies head injury, LOC Chief Complaint: Lower Extremity Time Seen by MD: 11:45 Primary Care Provider: NONE Reviewed Notes: Medications, Allergies Allergies: Coded Allergies: NO KNOWN ALLERGIES (Unverified , 08/02/17) Home Meds Active Scripts Naproxen (Naproxen) 500 Mg Tab, 500 MG PO BIDPC for 10 Days, #20 TAB 0 Refills Prov:ELLIOT KELLEY [employer]URAL STEEL [employer]TER 10/13/24 Gabapentin (Once-Daily) (Gabapentin) 300 Mg Tab, 300 MG PO Q6HP PRN for 10 Days, #40 TAB Prov:ANTHONY HARLEY MD 05/18/24 Chlordiazepoxide Hcl (Librium) 25 Mg Cp, 25 MG GT Q4HP PRN for 10 Days, #60 CAP Prov:ANTHONY HARLEY MD 05/18/24 Information Source: Patient Mode of Arrival: Wheelchair Location: Right Extremity Location: Ankle Timing: Hours Prehospital treatment: None Severity: Moderate Able to Move Extremity: No Bear Weight: No Pain: Moderate Mechanism: Hyperflexion Circumstances: Fall Onset of Symptoms: After Trauma Symptoms: Swelling, Pain, Erythema DVT Risk Factors: NONE Associated signs and symptoms: Ankle pain, Foot pain Past Medical History PAST MEDICAL HISTORY: Anxiety Surgical History: Appendectomy Family History Family History: Reviewed,noncontributory to illness Social History Smoker: Non-Smoker, Other Alcohol: Heavy Drugs: Marijuana Lives In: Home All Other Systems: Reviewed and Negative (as per HPI) Physical Exam General Appearance: No Apparent Distress, Normal HEENT: Normal ENT Inspection, Pharynx Normal, TMs Normal Neck: Full Range of Motion, Non-Tender, Normal, Normal Inspection Respiratory: Chest Non-Tender, Lungs Clear, No Accessory Muscle Use, No Respiratory Distress, Normal Breath Sounds Cardiovascular: No Edema, No JVD, No Murmur, No Gallop, Normal Peripheral Pulses, Regular Rate/Rhythm Breast Exam: Deferred Gastrointestinal: No Organomegaly, Non Tender, No Pulsatile Mass, Normal Bowel Sounds, Soft Genitalia: Deferred Pelvic: Deferred Rectal: Deferred Extremities: No calf tenderness, Normal capillary refill Musculoskeletal : Location: Right Extremity Location: Ankle (no gross abolbmilty, no soft tissue swelling, no erythema, no ecchymosis, no tenderness to achilies, no tenderness to medial malleoulus, no tenderness to inferior extesnor retinaculum, localized tenderess to lateral malleolus, patient unable to flex or extend the ankle due to pain ), Foot Apperance: Swelling Neurologic: Alert, fisher trawl line II-XII nml as Tested, No Motor Deficits, Normal Affect, Normal Mood, No Sensory Deficits Cerebellar Function: Normal Reflexes: Normal Skin: Dry, Normal Color, Warm Lymphatic: No Adenopathy Was a procedure done? Was a procedure done?: No X-Ray, Labs, Meds, VS Vital Signs Date Time Temp Pulse Resp B/P (MAP) Pulse Ox O2 Delivery O2 Flow Rate FiO2 10/13/24 13:09 98.6 88 16 130/78 (95) 97 98.6 10/13/24 11:27 84 18 95 Room Air 10/13/24 11:27 97.9 84 18 121/78 (92) 95 97.9 10/13/24 08:46 98.1 88 18 133/75 (94) 96 98.1 Current Medications Medications (Trade) Dose Ordered Sig/Manuel Route Start Time Stop Time Status Last Admin Acetaminophen/ Hydrocodone Bitart ([place] 7.5/325MG Tab) 1 tab ONCE ONCE PO 10/13/24 12:00 10/13/24 12:01 DC 10/13/24 12:05 PATIENT: BAYRON MARTINEZ SACCT: [id number]: [id number] : 1990 LOC: ER ROOM / BED: / AGE / SEX: 34 / M ADM STATUS: REG ER SERVICE 1506 ORDERING PHYSICIAN: ELLIOT KELLEY [employer]UCTURAL STEEL FITTER PROCEDURE(s): RANKL - R ANKLE 3 VIEW REASON: r/o fracture ORDER NUMBER(s): [id number], ACCESSION NUMBER(s): [id number] XY R ANKLE 3 VIEW, INDICATION: r/o fracture TECHNICAL DATA:Frontal , oblique and lateral views were obtained of the right ankle. COMPARISON: None FINDINGS: Possible nondisplaced fracture of the distal fibula. Joint spaces are maintained. Alignment is anatomic. Soft tissues are within normal limit. IMPRESSION: Possible nondisplaced fracture of the distal fibula. ATED BY: SCOTT MCCALLUM MD DICTATED DATE/TIME: 10/13/24 1232 SIGNED BY: SCOTT MCCALLUM MD SIGNED DATE/TIME: 10/13/24 1232 CC: X-Ray, Labs, Meds, VS Comment A 34 year male presents to the ED with a chief complaint of possible fracture of LT foot s/p fall onset yesterday (10/12/24).Patient is a -year-old _ underscore with no significant PMH presenting to the ED for chief complaint of After ROS and physical examination, differentials considered but not limited to: Peripheral IV insertion+ labs were ordered. CBC was ordered to exclude anemia, blood loss, or infection. CMP was ordered to exclude electrolyte abnormalities, renal failure, dehydration, hyperglycemia and/or liver enzyme abnormalities. PT and INR were ordered to rule out coagulopathy. Troponin and BNP were ordered to rule out myocardial infarction, or congestive heart failure. Urinalysis was ordered to rule out UTI or hematuria. Radiology results interpreted by radiology and reviewed by me are documented by me in the "radiology " section above. I ordered a chest x-ray to exclude pneumonia, pneumothorax, pleural effusion, or cardiomegaly. Patient was given:_. Tolerated medications with no adverse reaction. Labs in the ED showed (pertinent+ and then pertinent-) Additional MDM Review of External, Non-ED records: External records reviewed. Discussion with independent historian (EMS, family) history obtained from the patient at bedside Chronic conditions affecting care: Social determinants of health affecting care: Consideration of admission (observation or admission): I considered escalation of care to admission for this patient, however given the reassuring workup, the patient is safe for outpatient management. Time of 1ST Reevaluation: 12:15 Reevaluation 1ST: Unchanged Patient Education/Counseling: Diagnosis, Treatment Family Education/Counseling: Diagnosis, Treatment Departure 1 Departure Time of Disposition: 12:49 Impression: Primary Impression: Right fibular fracture Qualified Codes: S82.831A - Other fracture of upper and lower end of right fibula, initial encounter for closed fracture Disposition: HOME / SELF CARE / HOMELESS Condition: Fair e-Prescriptions Naproxen (Naproxen) 500 Mg Tab 500 MG PO BIDPC for 10 Days, #20 TAB 0 Refills Prov: ELLIOT KELLEY NP 10/13/24 Critical Care Note Critical Care Time?: No Stability Stability form required: No I personally scribed for ELLIOT KELLEY [employer]URAL STEEL FITTER ([email or web address]) on 10/13/24 at 12:26. Electronically submitted by Meenakshi Dawn ([email or web address]). ELLIOT KELLEY NP October 13, 2024 12:26
--- NOTE | 2024-10-13 12:34 | DVH ---
XY R ANKLE 3 VIEW, INDICATION: r/o fracture TECHNICAL DATA:Frontal , oblique and lateral views were obtained of the right ankle. COMPARISON: None FINDINGS: Possible nondisplaced fracture of the distal fibula. Joint spaces are maintained. Alignment is anato nesha. Soft tissues are within normal limit. IMPRESSION: Possible nondisplaced fracture of the distal fibula.
[2024-10-13] MEDS ORDERED: NAPR-746 PO (12:49)
[2024-10-13 13:09] VITALS: BP 130/78; PULSE 88; RESP 16; TEMP 98.6; O2SAT 97
[2024-10-13] MEDS ORDERED: HYDR-4902 PO (14:46)
== END 2024-10-13 13:11 | disposition home or self-care (01) ==
LOC: ER 08:45
DX: S82.831A Other fracture of upper and lower end of right fibula, initial encounter for closed fracture (principal); F41.9 Anxiety disorder, unspecified; Z90.49 Acquired absence of other specified parts of digestive tract; W01.0XXA Fall on same level from slipping, tripping and stumbling without subsequent striking against object, initial encounter; Y93.89 Activity, other specified; Y92.89 Other specified places as the place of occurrence of the external cause; Y99.8 Other external cause status
CPT/HCPCS: 29515; 73610

== ENCOUNTER 2024-10-15 15:29 | Emergency (ER) | payer MEDICAID ==
[~2024-10-15] VITALS: Ht 177.8 cm; Wt 85.0 kg
[~2024-10-15 15:29] MED LIST changes: +HYDR-4902 PO; +NAPR-746 PO
[2024-10-15] MEDS ORDERED: HYDR-4902 PO (16:44)
--- NOTE | 2024-10-15 16:45 | ED.PDOC ---
History of Present Illness HPI Comments This is a 34-year-old male who comes in with chief complaint of needing a medication refill. The patient has suffered a right ankle fracture two days ago. He was seen at our facility in his back as he is having increased pain and he ran out of his pain medications. The patient was no other complaints at this time. Chief Complaint: Lower Extremity Time Seen by MD: 15:48 Primary Care Provider: NONE Reviewed Notes: Nurses Notes, Medications, Allergies (No allergies to medica tions) Allergies: Coded Allergies: NO KNOWN ALLERGIES (Unverified , 08/02/17) Home Meds Active Scripts Hydrocodone-Acetaminophen (Hydrocodone Bitartrate/AC 5-325 mg) 1 Tab Tab, 1 TAB PO Q8HP PRN for 7 Days, #21 TAB Prov:AMBER SUAREZ MD 10/15/24 Hydrocodone-Acetaminophen (Hydrocodone Bitartrate/AC 5-325 mg) 1 Tab Tab, 1 TAB PO Q8HP PRN for 1 Day, #3 TAB 0 Refills Prov:ELLIOT KELLEY SPINNER OPEN END 10/13/24 Naproxen (Naproxen) 500 Mg Tab, 500 MG PO BIDPC for 10 Days, #20 TAB 0 Refills Prov:ELLIOT KELLEY [employer]INNER [employer] END 10/13/24 Gabapentin (Once-Daily) (Gabapentin) 300 Mg Tab, 300 MG PO Q6HP PRN for 10 Days, #40 TAB Prov:ANTHONY HARLEY MD 05/18/24 Chlordiazepoxide Hcl (Librium) 25 Mg Cp, 25 MG GT Q4HP PRN for 10 Days, #60 CAP Prov:ANTHONY HARLEY MD 05/18/24 Information Source: Patient, Significant Other Mode of Arrival: Ambulatory Severity: Moderate Timing: Days Duration: Since onset Prehospital treatment: None Location: Right ankle pain and swelling Associated signs and symptoms No nausea, vomiting or diarrhea Past Medical History PAST MEDICAL HISTORY: Anxiety Surgical History: Appendectomy, Cholecystectomy Family History Family History: Reviewed,noncontributory to illness Social History Smoker: Other (VAPE) Alcohol: Heavy Drugs: Denies Drug Use Lives In: Home Constitutional: denies: chills, diaphoresis, fatigue, fever, malaise, sweats, weakness, others EENTM: denies: blurred vision, double vision, ear bleeding, ear discharge, ear drainage, ear pain, ear ringing, eye pain, eye redness, hearing loss, mouth pain, mouth swelling, nasal discharge, nose bleeding, nose congestion, nose pain, photophobia, tearing, throat pain, throat swelling, voice changes, others Respiratory: denies: cough, hemoptysis, orthopnea, SOB at rest, shortness of breath, SOB with excertion, stridor, wheezing, others Cardiovascular: denies: chest pain, dizzy spells, diaphoresis, Dyspnea on exertion, edema, irregular heart beat, left arm pain, lightheadedness, palpitations, PND, syncope, others Gastrointestinal: denies: abdomen distended, abdominal pain, blood streaked bowels, constipated, diarrhea, dysphagia, difficulty swallowing, hematemesis, melena, nausea, poor appetite, poor fluid intake, rectal bleeding, rectal pain, vomiting, others Genitourinary: denies: burning, dysuria, flank pain, frequency, hematuria, i ncontinence, penile discharge, penile sore, pain, testicle pain, testicle swelling, urgency, others Neurological: denies: dizziness, fainting, headache, left sided numbness, left sided weakness, numbness, paresthesia, pre-existing deficit, right sided numbness, right sided weakness, seizure, speech problems, tingling, tremors, weakness, others Musculoskeletal: reports: others (Right ankle fracture in his splint); denies: back pain, gout, joint pain, joint swelling, muscle pain, muscle stiffness, neck pain Integumetry: denies: bruises, change in color, change in hair/nails, dryness, laceration, lesions, lumps, rash, wounds, others Allergic/Immunocompromised: denies: Difficulty Healing, Frequent Infections, Hives, Itching, others Hematologic/Lymphatic: denies: anemia, blood clots, easy bleeding, easy bruising, swollen glands, others Endocrine: denies: excessive hunger, excessive sweating, excessive thirst, excessive urination, flushing, intolerance to cold, intolerance to heat, unexplained weight gain, unexplained weight loss, others Psychiatric: denies: anxiety, bipolar disorder, depression, hopeless, panic disorder, schizophrenia, sleepless, suicidal, others Physical Exam General Appearance: Mild Distress HEENT: Normal ENT Inspection, Pharynx Normal, TMs Normal Neck: Full Range of Motion, Non-Tender, Normal, Normal Inspection Respiratory: Chest Non-Tender, Lungs Clear, No Accessory Muscle Use, No Respiratory Distress, Normal Breath Sounds Cardiovascular: No Edema, No JVD, No Murmur, No Gallop, Normal Peripheral Pulses, Regular Rate/Rhythm Breast Exam: Deferred Gastrointestinal: No Organomegaly, Non Tender, No Pulsatile Mass, Normal Bowel Sounds, Soft Genitalia: Deferred Pelvic: Deferred Rectal: Deferred Extremities: No calf tenderness, Normal capillary refill, No pedal edema, Other (The patient's right ankle is in a long-leg splint) Musculoskeletal : Apperance: Normal Neurologic: Alert, end stapler II-XII nml as Tested, No Motor Deficits, Normal Affect, Normal Mood, No Sensory Deficits Cerebellar Function: Normal Reflexes: Normal Skin: Dry, Normal Color, Warm Lymphatic: No Adenopathy Was a procedure done? Was a procedure done?: No Differential Dx Considerations may include: Medication refill, right ankle fracture X-Ray, Labs, Meds, VS Vital Signs Date Time Temp Pulse Resp B/P (MAP) Pulse Ox O2 Delivery O2 Flow Rate FiO2 10/15/24 15:30 98.1 75 18 129/86 (100) 96 98.1 The patient was given a [facility] prescription Time of 1ST Reevaluation: 16:42 Reevaluation 1ST: Unchanged Patient Education/Counseling: Diagnosis, Treatment, Prognosis, Need For Follow Up Family Education/Counseling: No Family Present Departure 1 Departure Time of Disposition: 16:42 Impression: Primary Impression: Right fibular fracture Qualified Codes: S82.831D - Other fracture of upper and lower end of right fibula, subsequent encounter for closed fracture with routine healing Additional Impression: Medication refill Disposition: 01 HOME / SELF CARE / HOMELESS Condition: Fair e-Prescriptions Hydrocodone-Acetaminophen (Hydrocodone Bitartrate/AC 5-325 mg) 1 Tab Tab 1 TAB PO Q8HP PRN for 7 Days, #21 TAB Prov: AMBER SUAREZ MD 10/15/24 Discharged With: Self Critical Care Note Critical Care Time?: No Stability Stability form required: No Heart Score Heart Score: Heart Score Response (Comments) Value History N/A 0 EKG N/A 0 Age N/A 0 Risk Factors N/A 0 Troponin N/A 0 Total 0 AMBER SUAREZ MD October 15, 2024 16:45
[2024-10-15 17:39] VITALS: BP 137/93; PULSE 63; RESP 18; TEMP 99; O2SAT 95
== END 2024-10-15 17:45 | disposition home or self-care (01) ==
LOC: ER 15:29
DX: S82.401A Unspecified fracture of shaft of right fibula, initial encounter for closed fracture (principal); F17.290 Nicotine dependence, other tobacco product, uncomplicated; F41.9 Anxiety disorder, unspecified; F10.90 Alcohol use, unspecified, uncomplicated; Y90.9 Presence of alcohol in blood, level not specified; Z76.0 Encounter for issue of repeat prescription; Z90.49 Acquired absence of other specified parts of digestive tract; Z79.899 Other long term (current) drug therapy; X58.XXXA Exposure to other specified factors, initial encounter; Y93.89 Activity, other specified; Y92.89 Other specified places as the place of occurrence of the external cause; Y99.9 Unspecified external cause status